=== PATIENT | female | born 1980 | race Hispanic/Latino ===

== ENCOUNTER 2019-12-20 22:19 | Inpatient (IN) | payer OTHER, SELFPAY ==
[~2019-12-20] VITALS: Ht 154.9 cm; Wt 129.0 kg
[2019-12-20 23:14] LABS: BASOPHILS % (AUTO) 0.4 % (0.0-5.0); EOSINOPHILS % (AUTO) 1.8 % (0.0-8.0); HEMATOCRIT 43.7 % (36-48); LYMPHOCYTES % (AUTO) 18.4 % (21.0-51.0); MEAN CORPUSCULAR HEMOGLOBIN 31.8 pg (27.0-33.0); MEAN CORPUSCULAR HGB CONC 33.4 g/dL (32.0-36.0); MEAN CORPUSCULAR VOLUME 95.2 fL (79-99); MONOCYTES % (AUTO) 4.7 % (3.0-13.0); NEUTROPHILS % (AUTO) 74.4 % (40.0-77.0); PLATELET COUNT (AUTO) 422 K/uL (130-400); RED BLOOD CELL COUNT(AUTO) 4.59 MIL/uL (4.00-5.50); WHITE BLOOD COUNT (AUTO) 9.7 K/uL (4.8-10.8)
[2019-12-20 23:26] LABS: POTASSIUM 3.9 mmol/L (3.5-5.1)
[2019-12-20 23:36] LABS: ALBUMIN 3.4 g/dL (3.5-5.0); BILIRUBIN,TOTAL 0.4 mg/dL (0.2-1.0); TOTAL PROTEIN, SERUM 7.5 g/dL (6.0-8.3)
[2019-12-20 23:46] LABS: INR 0.92 (0.85-1.15); PARTIAL THROMBOPLASTIN TIME 26.9 SEC (26.3-35.5)
[2019-12-21] MEDS ORDERED: IOHEXOL 350 MG/ML 100ML INFUS..BTL IV ONE (00:25)
[2019-12-21] MEDS ORDERED: IOHEXOL-350 50ML VIAL IV ONE (00:54)
[2019-12-21] MEDS ORDERED: CLONIDINE HCL 0.2 MG TABLET PO ONE (02:08)
[2019-12-21] MEDS ORDERED: LEVOFLOXACIN 500 MG/D5W 100 ML 100 ML ONE (02:20)
[2019-12-21 02:27] LABS: AMPHET/METH SCREEN,URINE NEGATIVE (NEGATIVE); BARBITURATE SCREEN, URINE NEGATIVE (NEGATIVE); BENZODIAZEPINES SCREEN,URINE NEGATIVE (NEGATIVE); CANNABINOID SCREEN,URINE NEGATIVE (NEGATIVE); COCAINE SCREEN,URINE POSITIVE (NEGATIVE); OPIATE SCREEN,URINE NEGATIVE (NEGATIVE); PHENCYCLIDINE SCREEN,URINE NEGATIVE (NEGATIVE)
[2019-12-21] MEDS ORDERED: ALBUTEROL INHALER 90MCG/INH IH PRN (03:15)
[2019-12-21] MEDS ORDERED: ONDANSETRON HCL 4 MG/2 ML VIAL IV PRN (03:15)
[2019-12-21] MEDS ORDERED: MORPHINE SULFATE 2 MG/ML 1ML SYG IV PRN (03:15)
[2019-12-21] MEDS ORDERED: NITROGLYCERIN 0.4 MG SL TAB SL PRN (03:15)
[2019-12-21] MEDS ORDERED: ACETAMINOPHEN 325 MG TAB PO PRN (03:15)
[2019-12-21] MEDS: ASPIRIN 325MG EC TAB 325 MG TABLET.DR PO SCH (03:30)
[2019-12-21 03:39] LABS: APPEARANCE,URINE Clear (CLEAR); BILIRUBIN,URINE Negative (NEGATIVE); COLOR,URINE Yellow (YELLOW); GLUCOSE, URINE (UA) Negative (NEGATIVE); KETONES,URINE 15 mg/dL (NEGATIVE); LEUKOCYTE ESTERASE ,URINE Negative (NEGATIVE); NITRATE,URINE Negative (NEGATIVE); OCCULT BLOOD,URINE Negative (NEGATIVE); PH,URINE 5.5 (5.0-8.0); PROTEIN,URINE Negative (NEGATIVE)
[2019-12-21] MEDS ORDERED: NITROGLYCERIN 1GM/1 INCH PACKET TD ONE (04:17)
[2019-12-21] MEDS ORDERED: AZITHROMYCIN 500MG+NS 250ML 250 ML IV ONE (04:17)
[2019-12-21 05:11] LABS: BASOPHILS % (AUTO) 0.5 % (0.0-5.0); EOSINOPHILS % (AUTO) 1.8 % (0.0-8.0); HEMATOCRIT 41.6 % (36-48); LYMPHOCYTES % (AUTO) 21.3 % (21.0-51.0); MEAN CORPUSCULAR HEMOGLOBIN 31.9 pg (27.0-33.0); MEAN CORPUSCULAR HGB CONC 33.4 g/dL (32.0-36.0); MEAN CORPUSCULAR VOLUME 95.4 fL (79-99); MONOCYTES % (AUTO) 4.1 % (3.0-13.0); NEUTROPHILS % (AUTO) 71.9 % (40.0-77.0); PLATELET COUNT (AUTO) 395 K/uL (130-400); RED BLOOD CELL COUNT(AUTO) 4.36 MIL/uL (4.00-5.50); RED CELL DISTRIBUTION WIDTH 12.9 % (11.0-15.5); WHITE BLOOD COUNT (AUTO) 8.1 K/uL (4.8-10.8)
[2019-12-21 05:20] LABS: CRP QUANTITATIVE 22.2 mg/L (0.00-9.0); POTASSIUM 3.7 mmol/L (3.5-5.1)
[2019-12-21] MEDS: CEFTRIAXONE SODIUM 1 GM IV SCH (05:30)
[2019-12-21 05:32] LABS: HEMOGLOBIN A1C 5.6 % (4.0-6.0)
[2019-12-21] MEDS: NITROGLYCERIN 1GM/1 INCH PACKET TD SCH ×4 (06:00→23:34)
[2019-12-21] MEDS ORDERED: FAMOTIDINE 20MG TAB 20 MG TAB ONE (08:39)
[2019-12-21] MEDS ORDERED: ENOXAPARIN SODIUM 40 MG/0.4 ML SYRINGE SQ ONE (08:39)
[2019-12-21] MEDS ORDERED: ASPIRIN 325 MG TABLET ONE (08:39)
[2019-12-21] MEDS ORDERED: CEFTRIAXONE SODIUM 1 GM ONE (08:40)
[2019-12-21] MEDS: FAMOTIDINE 20MG TAB 20 MG TAB PO SCH ×2 (09:00→21:46)
[2019-12-21] MEDS: ASPIRIN 81MG TAB.CHEW PO SCH (09:00)
[2019-12-21] MEDS: ENOXAPARIN SODIUM 40 MG/0.4 ML SYRINGE SQ SCH (09:00)
[2019-12-21] MEDS ORDERED: ALBUTEROL INHALER 90MCG/INH IH ONE (09:26)
[2019-12-21 21:08] VITALS: BP 170/129
[2019-12-21] MEDS: ATORVASTATIN CALCIUM 20 MG TABLET PO SCH (21:46)
[2019-12-21] MEDS: HYDRALAZINE HCL 20 MG/ML VIAL IV PRN (23:34)
[2019-12-21 23:53] VITALS: BP 189/116
[2019-12-21 23:54] VITALS: BP 154/106
[2019-12-22] MEDS: ASPIRIN 325MG EC TAB 325 MG TABLET.DR PO SCH (03:30)
[2019-12-22 03:42] VITALS: BP 153/93
[2019-12-22 03:51] LABS: BASOPHILS % (AUTO) 0.4 % (0.0-5.0); EOSINOPHILS % (AUTO) 2.3 % (0.0-8.0); HEMATOCRIT 39.5 % (36-48); LYMPHOCYTES % (AUTO) 22.2 % (21.0-51.0); MEAN CORPUSCULAR HEMOGLOBIN 31.2 pg (27.0-33.0); MEAN CORPUSCULAR HGB CONC 32.9 g/dL (32.0-36.0); MEAN CORPUSCULAR VOLUME 94.7 fL (79-99); MONOCYTES % (AUTO) 5.1 % (3.0-13.0); NEUTROPHILS % (AUTO) 69.5 % (40.0-77.0); PLATELET COUNT (AUTO) 369 K/uL (130-400); RED BLOOD CELL COUNT(AUTO) 4.17 MIL/uL (4.00-5.50); RED CELL DISTRIBUTION WIDTH 12.8 % (11.0-15.5); WHITE BLOOD COUNT (AUTO) 9.1 K/uL (4.8-10.8)
[2019-12-22 04:03] LABS: CREATININE 0.9 mg/dL (0.5-1.5); POTASSIUM 3.7 mmol/L (3.5-5.1)
[2019-12-22] MEDS: CEFTRIAXONE SODIUM 1 GM IV SCH (04:49)
[2019-12-22] MEDS: ACETAMINOPHEN 325 MG TAB PO PRN ×2 (04:50→21:01)
[2019-12-22] MEDS: AZITHROMYCIN 500MG+NS 250ML 250 ML IV SCH (04:50)
[2019-12-22] MEDS: NITROGLYCERIN 1GM/1 INCH PACKET TD SCH ×3 (06:00→17:47)
[2019-12-22 08:00] VITALS: BP 180/120
[2019-12-22] MEDS: ASPIRIN 81MG TAB.CHEW PO SCH (08:48)
[2019-12-22] MEDS: FAMOTIDINE 20MG TAB 20 MG TAB PO SCH ×2 (08:48→20:54)
[2019-12-22] MEDS: HYDRALAZINE HCL 20 MG/ML VIAL IV PRN (08:49)
[2019-12-22 12:00] VITALS: BP 170/100
--- NOTE | 2019-12-22 12:07 | NUR ---
DCP CM met with pt discussed dc plans. Pt is independent prior to admission, lives at home with mother. Denies any equipments/servcies. Feels safe to go back home, still drives, family able to assist with transportation and needs as necessary. Pt is a selfpay, [facility] assisting, given community resources packet. DC plan to home once stable. CM to cont to follow up. Addendum: 12/22/19 at 1215 by ALEYDA PEREIRA LVN CM Amended: Links added.
[2019-12-22] MEDS ORDERED: LISINOPRIL 20 MG TABLET PO SCH (15:20)
[2019-12-22 16:00] VITALS: BP 156/105
[2019-12-22] MEDS: ENOXAPARIN SODIUM 40 MG/0.4 ML SYRINGE SQ SCH (17:47)
[2019-12-22 19:30] VITALS: BP 136/77
[2019-12-22] MEDS: ATORVASTATIN CALCIUM 20 MG TABLET PO SCH (20:54)
[2019-12-22 23:29] VITALS: BP 155/78
[2019-12-23] MEDS: NITROGLYCERIN 1GM/1 INCH PACKET TD SCH ×3 (00:16→13:45)
[2019-12-23 03:45] VITALS: BP 150/83
[2019-12-23] MEDS: CEFTRIAXONE SODIUM 1 GM IV SCH (05:15)
[2019-12-23] MEDS: AZITHROMYCIN 500MG+NS 250ML 250 ML IV SCH (05:15)
[2019-12-23 06:05] LABS: BASOPHILS % (AUTO) 0.5 % (0.0-5.0); EOSINOPHILS % (AUTO) 2.3 % (0.0-8.0); HEMATOCRIT 42.4 % (36-48); LYMPHOCYTES % (AUTO) 23.7 % (21.0-51.0); MEAN CORPUSCULAR HEMOGLOBIN 30.8 pg (27.0-33.0); MEAN CORPUSCULAR HGB CONC 32.3 g/dL (32.0-36.0); MEAN CORPUSCULAR VOLUME 95.3 fL (79-99); MONOCYTES % (AUTO) 3.7 % (3.0-13.0); NEUTROPHILS % (AUTO) 69.3 % (40.0-77.0); PLATELET COUNT (AUTO) 390 K/uL (130-400); RED BLOOD CELL COUNT(AUTO) 4.45 MIL/uL (4.00-5.50); RED CELL DISTRIBUTION WIDTH 12.8 % (11.0-15.5); WHITE BLOOD COUNT (AUTO) 8.6 K/uL (4.8-10.8)
[2019-12-23 06:27] LABS: ALBUMIN 3.2 g/dL (3.5-5.0); BILIRUBIN,TOTAL 0.3 mg/dL (0.2-1.0); CREATININE 0.9 mg/dL (0.5-1.5); POTASSIUM 3.7 mmol/L (3.5-5.1); TOTAL PROTEIN, SERUM 7.4 g/dL (6.0-8.3)
[2019-12-23 08:00] VITALS: BP 191/140
[2019-12-23] MEDS ORDERED: LISINOPRIL 20 MG TABLET PO SCH (09:00)
[2019-12-23] MEDS: FAMOTIDINE 20MG TAB 20 MG TAB PO SCH (09:31)
[2019-12-23] MEDS: ASPIRIN 81MG TAB.CHEW PO SCH (09:32)
[2019-12-23] MEDS: ENOXAPARIN SODIUM 40 MG/0.4 ML SYRINGE SQ SCH (09:40)
[2019-12-23 12:00] VITALS: BP 160/102
[2019-12-23] MEDS ORDERED: SULF1TAB41 PO (14:41)
[2019-12-23] MEDS ORDERED: ALBUHFA IH (14:45)
[2019-12-23] MEDS ORDERED: FAMO20TA8 PO (14:45)
[2019-12-23] MEDS ORDERED: ATOR20TA65 PO (14:45)
[2019-12-23] MEDS ORDERED: LISI-613 PO (14:45)
[2019-12-23] MEDS ORDERED: ASPI-1005 PO (14:45)
--- NOTE | 2019-12-23 17:00 | NUR ---
discharged using teach back. saline lock lt. hand removed, site healthy. inst given and rx sent electronic to pharm. of choice. verbalized understanding of all inst. given. wheeled downstairs to er area where family is waiting.
== END 2019-12-23 15:50 | disposition home or self-care (01) | DRG 194 ==
LOC: EDH 22:19 → EDHIP 22:20 → 4BH 12-21 20:15
PROVIDERS: ADMIT Internal Medicine; ATTEND Internal Medicine
DX: J18.9 Pneumonia, unspecified organism (principal); J44.1 Chronic obstructive pulmonary disease with (acute) exacerbation; Z68.43 Body mass index [BMI] 50.0-59.9, adult; R04.2 Hemoptysis; J44.0 Chronic obstructive pulmonary disease with (acute) lower respiratory infection; I10 Essential (primary) hypertension; E66.01 Morbid (severe) obesity due to excess calories; F17.200 Nicotine dependence, unspecified, uncomplicated; Z20.828 Contact with and (suspected) exposure to other viral communicable diseases; F14.90 Cocaine use, unspecified, uncomplicated; Z79.899 Other long term (current) drug therapy
CPT/HCPCS: 36415; 71045; 71275; 80048; 80053; 80305; 81003; 83036; 84484; 84702; 85025; 85610; 85730; 86140; 87040; 87077; 87186; 87486; 87581; 87633; 87635; 87798; 87804; 87880; 93005; G0378; J0360; J0456; J0696; J1650; J1956; Q9967

== ENCOUNTER 2020-01-26 21:12 | Inpatient (IN) | payer OTHER, SELFPAY ==
[~2020-01-26] VITALS: Ht 154.9 cm; Wt 130.2 kg
[~2020-01-26 21:12] MED LIST: ALBUHFA IH; ASPI-1005 PO; ATOR20TA65 PO; FAMO20TA8 PO; LISI-613 PO; SULF1TAB41 PO
[2020-01-26 22:21] LABS: BASOPHILS % (AUTO) 0.3 % (0.0-5.0); EOSINOPHILS % (AUTO) 1.1 % (0.0-8.0); HEMATOCRIT 34.8 % (36-48); LYMPHOCYTES % (AUTO) 9.1 % (21.0-51.0); MEAN CORPUSCULAR HEMOGLOBIN 31.3 pg (27.0-33.0); MEAN CORPUSCULAR HGB CONC 32.8 g/dL (32.0-36.0); MEAN CORPUSCULAR VOLUME 95.6 fL (79-99); MONOCYTES % (AUTO) 3.4 % (3.0-13.0); NEUTROPHILS % (AUTO) 85.6 % (40.0-77.0); NUCLEATED RED BLOOD CELLS 0.3 % (0.0-0.19); PLATELET COUNT (AUTO) 444 K/uL (130-400); RED BLOOD CELL COUNT(AUTO) 3.64 MIL/uL (4.00-5.50); RED CELL DISTRIBUTION WIDTH 13.5 % (11.0-15.5); WHITE BLOOD COUNT (AUTO) 15.2 K/uL (4.8-10.8)
[2020-01-26 22:33] LABS: INR 0.92 (0.85-1.15); PARTIAL THROMBOPLASTIN TIME 26.9 SEC (26.3-35.5)
[2020-01-26 22:37] LABS: CARBON DIOXIDE 27 mmol/L (21-32); CHLORIDE 100 mmol/L (101-111); CREATININE 0.7 mg/dL (0.5-1.5); GLOMERULAR FILTR. RATE CALC 100 mL/min (>60); GLUCOSE,RANDOM 124 mg/dL (70-105); POTASSIUM 3.8 mmol/L (3.5-5.1); SODIUM SERUM 135 mmol/L (136-145); UREA NITROGEN, BLOOD 8 mg/dL (7-18)
[2020-01-26 22:51] LABS: ALANINE AMINOTRANSFERASE 20 U/L (12-78); ASPARTATE AMINOTRANSFERASE 30 U/L (10-37); BILIRUBIN,TOTAL 0.6 mg/dL (0.2-1.0); MYOGLOBIN 59 ng/mL (10-92); TOTAL PROTEIN, SERUM 7.2 g/dL (6.0-8.3); TROPONIN I < 0.04 ng/mL (0.00-0.06)
[2020-01-26 23:08] LABS: CREATINE KINASE, TOTAL 429 U/L (21-232)
[2020-01-26] MEDS ORDERED: CEFTRIAXONE SODIUM 1 GM ONE (23:41)
[2020-01-26] MEDS ORDERED: SODIUM CHLORIDE 0.9% 50 ML IV ONE (23:43)
[2020-01-27] MEDS ORDERED: AZITHROMYCIN 500MG+NS 250ML 250 ML IV ONE ×2 (00:31→00:35)
[2020-01-27] MEDS ORDERED: ACETAMINOPHEN 325 MG TAB ONE (02:43)
[2020-01-27] MEDS ORDERED: ERGOCALCIFEROL (VITAMIN D2) 50,000 UNIT CAPSULE PO ONE (02:45)
[2020-01-27] MEDS ORDERED: ONDANSETRON HCL 4 MG/2 ML VIAL IV PRN (02:45)
[2020-01-27] MEDS: CEFTRIAXONE SODIUM 1 GM IVP SCH ×2 (02:45→14:19)
[2020-01-27] MEDS ORDERED: DOXYCYCLINE 100MG+NS 250ML IV SCH (02:45)
[2020-01-27] MEDS ORDERED: ACETAMINOPHEN 325 MG TAB PO PRN ×2 (02:45)
[2020-01-27] MEDS ORDERED: NITROGLYCERIN 1GM/1 INCH PACKET TD SCH ×2 (02:45→07:30)
[2020-01-27] MEDS ORDERED: DOXYCYCLINE HYCLATE 100 MG TABLET PO ONE (03:53)
[2020-01-27] MEDS ORDERED: METHYLPREDNISOLONE SOD SUCC 40MG/ML 1ML ONE (03:53)
[2020-01-27] MEDS ORDERED: ERGOCALCIFEROL (VITAMIN D2) 50,000 UNIT CAPSULE ONE (03:54)
[2020-01-27] MEDS ORDERED: NITROGLYCERIN 1GM/1 INCH PACKET TD ONE (03:54)
--- NOTE | 2020-01-27 05:30 | NUR ---
ER REPORT FROM BERRY BOCANEGRA
--- NOTE | 2020-01-27 06:00 | NUR ---
PT ARRIVED FROM ER. PT ON NRB.15L 100%. O2 LEVEL 92%. ABLE TO AMBULATE TO RR. STATES HM IS LISINOPIRL 20MG DAILY. PT STATES SON IS COVID POSITIVE BUT HAS RECOVERED FROM IT. PENDING COVID RESULTS.
[2020-01-27 06:20] VITALS: BP 143/106
[2020-01-27 07:42] LABS: BASOPHILS % (AUTO) 0.2 % (0.0-5.0); EOSINOPHILS % (AUTO) 0.1 % (0.0-8.0); HEMATOCRIT 29.3 % (36-48); MEAN CORPUSCULAR HEMOGLOBIN 31.5 pg (27.0-33.0); MEAN CORPUSCULAR HGB CONC 32.8 g/dL (32.0-36.0); MEAN CORPUSCULAR VOLUME 96.1 fL (79-99); MONOCYTES % (AUTO) 1.2 % (3.0-13.0); NEUTROPHILS % (AUTO) 94.1 % (40.0-77.0); NUCLEATED RED BLOOD CELLS 0.1 % (0.0-0.19); PLATELET COUNT (AUTO) 374 K/uL (130-400); RED BLOOD CELL COUNT(AUTO) 3.05 MIL/uL (4.00-5.50); RED CELL DISTRIBUTION WIDTH 13.4 % (11.0-15.5); WHITE BLOOD COUNT (AUTO) 15.6 K/uL (4.8-10.8)
[2020-01-27 08:00] VITALS: BP 142/78
[2020-01-27 08:13] LABS: ALANINE AMINOTRANSFERASE 19 U/L (12-78); ALBUMIN 2.6 g/dL (3.5-5.0); ASPARTATE AMINOTRANSFERASE 18 U/L (10-37); BILIRUBIN,TOTAL 0.4 mg/dL (0.2-1.0); CARBON DIOXIDE 28 mmol/L (21-32); CHLORIDE 102 mmol/L (101-111); CREATINE KINASE, TOTAL 385 U/L (21-232); GLOMERULAR FILTR. RATE CALC 66 mL/min (>60); GLUCOSE,RANDOM 234 mg/dL (70-105); LACTATE DEHYDROGENASE 177 U/L (81-234); MYOGLOBIN 60 ng/mL (10-92); POTASSIUM 3.5 mmol/L (3.5-5.1); SODIUM SERUM 136 mmol/L (136-145); TOTAL PROTEIN, SERUM 6.9 g/dL (6.0-8.3); TROPONIN I < 0.04 ng/mL (0.00-0.06); UREA NITROGEN, BLOOD 8 mg/dL (7-18)
[2020-01-27] MEDS ORDERED: METHYLPREDNISOLONE SOD SUCC 40MG/ML 1ML IVP SCH (09:00)
[2020-01-27] MEDS ORDERED: DOXYCYCLINE 100MG+NS 250ML 250 ML IV SCH (09:00)
[2020-01-27] MEDS: ZINC SULFATE 220 CAPSULE PO SCH (09:57)
[2020-01-27] MEDS: ACETYLCYSTEINE 600 MG CAPSULE PO SCH ×2 (09:57→21:05)
[2020-01-27] MEDS: ASPIRIN 81 MG EC TAB PO SCH (09:57)
[2020-01-27] MEDS: ASCORBIC ACID 500 MG TAB PO SCH (09:57)
[2020-01-27] MEDS: FAMOTIDINE/PF 20 MG/2 ML VIAL IV SCH ×2 (09:58→21:05)
[2020-01-27 11:30] VITALS: BP 111/61
[2020-01-27] MEDS: NITROGLYCERIN 1GM/1 INCH PACKET TD SCH ×2 (12:32→19:24)
[2020-01-27] MEDS: METHYLPREDNISOLONE SOD SUCC 40MG/ML 1ML IVP SCH ×2 (12:32→19:24)
[2020-01-27] MEDS ORDERED: PHARMACY COMMUNICATION***REMDESIVIR ORDER MISC SCH (14:00)
[2020-01-27 15:30] VITALS: BP 93/57
[2020-01-27 16:57] LABS: HEMATOCRIT 27.7 % (36-48); MEAN CORPUSCULAR HEMOGLOBIN 30.6 pg (27.0-33.0); MEAN CORPUSCULAR HGB CONC 31.8 g/dL (32.0-36.0); MEAN CORPUSCULAR VOLUME 96.2 fL (79-99); PLATELET COUNT (AUTO) 384 K/uL (130-400); RED BLOOD CELL COUNT(AUTO) 2.88 MIL/uL (4.00-5.50); RED CELL DISTRIBUTION WIDTH 13.1 % (11.0-15.5); WHITE BLOOD COUNT (AUTO) 14.6 K/uL (4.8-10.8)
[2020-01-27] MEDS ORDERED: IOHEXOL-350 75 ML VIAL IV ONE (17:00)
[2020-01-27 17:46] LABS: LYMPHOCYTES % (MANUAL) 6 % (22-44); MAN.DIFF COMMENT-IMPRESSION MANUAL DIFFERENTIAL; MONOCYTES % (MANUAL) 1 % (2-9); SEGMENTED NEUTROPHILS % 93 % (40-70)
[2020-01-27 17:47] LABS: PLATELET MORPHOLOGY COMMENT ADEQUATE
--- NOTE | 2020-01-27 18:20 | NUR ---
INITIAL SW spoke to patient's mother, Chandrika Johnson. Patient lives with common law spouse. No home services or DME. Patient is able to complete ADL's independently and drives. She has no PCP. Pharmacy is [facility] located on [address] [place] [address] in [place]. DCP is home. Patient has no insurance or benefits. She is being assisted by [employer]. Patient's mother was educated on $4 [facility] and $5 [facility] discount prescription program. Addendum: 01/27/20 at 1823 by ALBERTO GARDNER Amended: Links added.
[2020-01-27 19:00] VITALS: BP 115/64
[2020-01-27] MEDS: DOXYCYCLINE HYCLATE 100 MG TABLET PO SCH (21:05)
[2020-01-27 23:00] VITALS: BP 137/85
--- NOTE | 2020-01-28 00:10 | NUR ---
PATIENT CALLED OUT AFTER PATIENT WENT TO CT OF CHEST. NURSE WENT IN ROOM AT PATIENT'S NONREBREATHER CAME OFF WALL. NON REBREATHER HOOKED BACK UP. PATIENT WAS SATTING AT 80%. PLACED PATIENT IN A PRONE POSITION AND CALLED RESPIRATORY. TRIED USING 6L NASAL CANNULA AND 15L NONREBREATHER AND PATIENT STAYED AT 84%. RESPIRATORY PLACED PATIENT ON HIGH FLOW NASAL CANNULA AT 55L AND 80% OXYGEN AND 15L NONREBREATHER. PATIENT IS CURRENTLY SATTING AT 91%. PATIENT DENIES ANY RESPIRATORY DISTRESS.
[2020-01-28 03:00] VITALS: BP 130/73
[2020-01-28] MEDS: NITROGLYCERIN 1GM/1 INCH PACKET TD SCH ×3 (04:00→21:04)
[2020-01-28 04:33] LABS: BASOPHILS % (AUTO) 0.1 % (0.0-5.0); HEMATOCRIT 28.2 % (36-48); LYMPHOCYTES % (AUTO) 3.5 % (21.0-51.0); MEAN CORPUSCULAR HEMOGLOBIN 31.3 pg (27.0-33.0); MEAN CORPUSCULAR HGB CONC 31.9 g/dL (32.0-36.0); MEAN CORPUSCULAR VOLUME 97.9 fL (79-99); MONOCYTES % (AUTO) 3.1 % (3.0-13.0); NEUTROPHILS % (AUTO) 92.6 % (40.0-77.0); PLATELET COUNT (AUTO) 440 K/uL (130-400); RED BLOOD CELL COUNT(AUTO) 2.88 MIL/uL (4.00-5.50); RED CELL DISTRIBUTION WIDTH 13.4 % (11.0-15.5); WHITE BLOOD COUNT (AUTO) 18.4 K/uL (4.8-10.8)
[2020-01-28 04:46] LABS: ALBUMIN 2.6 g/dL (3.5-5.0); BILIRUBIN,TOTAL 0.4 mg/dL (0.2-1.0); CREATININE 0.8 mg/dL (0.5-1.5); TOTAL PROTEIN, SERUM 7.1 g/dL (6.0-8.3)
[2020-01-28 04:56] LABS: CRP QUANTITATIVE 138.9 mg/L (0.00-9.0)
[2020-01-28] MEDS ORDERED: POTASSIUM CHLORIDE 10% ELIXIR 20 MEQ/15 ML UDCUP PO PRN (05:45)
[2020-01-28] MEDS ORDERED: POTASSIUM CHLORIDE 20MEQ/100ML 100 ML IV PRN (05:45)
[2020-01-28] MEDS: METHYLPREDNISOLONE SOD SUCC 40MG/ML 1ML IVP SCH ×2 (05:48→11:05)
[2020-01-28 08:00] VITALS: BP 138/86
[2020-01-28] MEDS: FAMOTIDINE/PF 20 MG/2 ML VIAL IV SCH ×2 (08:03→21:04)
[2020-01-28] MEDS: CEFTRIAXONE SODIUM 1 GM IVP SCH ×2 (08:04→21:04)
[2020-01-28] MEDS: DOXYCYCLINE HYCLATE 100 MG TABLET PO SCH ×2 (08:06→21:00)
[2020-01-28] MEDS: ASCORBIC ACID 500 MG TAB PO SCH (08:06)
[2020-01-28] MEDS: ASPIRIN 81 MG EC TAB PO SCH (08:06)
[2020-01-28] MEDS: POTASSIUM CHLORIDE 20 MEQ ERTAB PO PRN ×2 (08:06→17:33)
[2020-01-28] MEDS: ZINC SULFATE 220 CAPSULE PO SCH (08:06)
[2020-01-28] MEDS: ACETYLCYSTEINE 600 MG CAPSULE PO SCH ×2 (08:06→21:00)
[2020-01-28] MEDS ORDERED: ENOXAPARIN SODIUM 0.5 MG/KG EACH SQ SCH (09:00)
[2020-01-28] MEDS ORDERED: ENOXAPARIN SODIUM 30 MG/0.3 ML SQ SCH (09:00)
--- NOTE | 2020-01-28 10:30 | NUR ---
RESTING IN BED WITH EYES CLOSED, RESP.'S EVEN AND UNLABORED. HI-FLOW AND NRB IN PLACE. O2 SAT. -96% PER CONTINUOUS PULSE OXIMETER.
[2020-01-28] MEDS: ENOXAPARIN SODIUM 80 MG/0.8 ML SQ SCH (10:59)
--- NOTE | 2020-01-28 11:10 | NUR ---
PT. STATES SHE WOULD LIKE TO LEAVE THE HOSPITAL. SHE WISHES TO NO LONGER BE HERE. INFORMED/REMINDED PT. OF CURRENT OXYGENATION NEEDS AND CONTINUES WITH SOB. INFORMED OF CONSEQUENCES OF OXYGEN REMOVAL AND RISKS OF LACK OF TREATMENT, RISK OF BLOOD CLOTS, HEART ATTACK AND EVEN BUT ALSO ADVISED SHE IS FREE TO LEAVE IF SHE WOULD LIKE TO "CHECK HERSELF OUT," SHE PUT IT. INFORMED PT. I WOULD GIVE HER TIME TO THINK ABOUT IT AND THIS NURSE WOULD RETURN FOR HER DECISION.
--- NOTE | 2020-01-28 11:25 | NUR ---
PT. STATES SHE WOULD LIKE TO REMAIN HOSPITALIZED TO CONTINUE TREATMENT.
[2020-01-28 11:30] VITALS: BP 132/88
--- NOTE | 2020-01-28 12:55 | NUR ---
RECEIVED ALL FROM PT.'S DAUGHTER, UPDATED ON STATUS AND QUESTIONS ANSWERED.
--- NOTE | 2020-01-28 14:25 | NUR ---
RESTING IN BED IN LEFT SIDE-LYING POSITION WITH EYES CLOSED, RESP.'S EVEN AND UNLABORED. O2 SAT PER CONT. PULSE OX. - 93%. CALL LIGHT WITHIN REACH.
[2020-01-28 15:30] VITALS: BP 124/63
[2020-01-28] MEDS: METHYLPREDNISOLONE SOD SUCC 125MG/2ML VIAL IVP SCH (17:33)
[2020-01-28] MEDS: GUAIFENESIN-DM 200/20 MG 10 ML PO PRN (17:34)
[2020-01-28 19:20] VITALS: BP 152/68
--- NOTE | 2020-01-28 20:18 | NUR ---
SPOKE WITH DR. LIZARRAGA AND NOTIFIED PT. IN LEFT SIDE-LYING POSITION WITH HI-FLOW O2, 60L/MIN 100% FIO2 AND NRB IN PLACE; O2 SATURATION REMAINS 80%-83%, AND PT. TACHYPNEIC; VERBALIZED UNDERSTANDING AND ORDER FOR BIPAP RECEIVED. RT LUIS IN PT.'S ROOM MADE AWARE.
--- NOTE | 2020-01-28 20:20 | NUR ---
SPOKE WITH PT. RE:POTENTIAL NEED FOR INTUBATION OR CPR/RESUSCITATION. PT. STATES SHE IS AGREEABLE TO INTUBATION AND RESUSCITATION.
[2020-01-28 20:41] LABS: ABG BASE EXCESS -1.3 mmol/L (-2.0-3.0); ABG HCO3 26.5 mmol/L (21.0-28.0); ABG OXYGEN SATURATION 82.5 % (95.0-99.0); ABG PCO2 58 mmHg (32-45)
--- NOTE | 2020-01-28 20:50 | NUR ---
NOTIFIED DR. LIZARRAGA OF ABG RESULTS, ORDER RECEIVED.
[2020-01-28] MEDS ORDERED: MORPHINE SULFATE 2 MG/ML 1ML SYG ONE (21:00)
[2020-01-28 22:26] LABS: ABG BASE EXCESS 3.6 mmol/L (-2.0-3.0); ABG HCO3 29.5 mmol/L (21.0-28.0); ABG OXYGEN SATURATION 88.7 % (95.0-99.0); ABG PCO2 49 mmHg (32-45)
--- NOTE | 2020-01-28 22:50 | NUR ---
DR. LIZARRAGA, AT NURSE'S STATION, UPDATED ON PT. STATUS. NO NEW ORDERS RECEIVED.
--- NOTE | 2020-01-28 23:05 | NUR ---
RESTING IN BED IN LEFT SIDE-LYING POSITION. BIPAP IN PLACE. 97% O2 SATURATION PER CONTINUOUS PULSE OXIMETER AT BEDSIDE. CALL LIGHT WITHIN REACH. ROOM BLINDS OPEN.
[2020-01-28 23:38] VITALS: BP 140/90
[2020-01-29] MEDS: GUAIFENESIN-DM 200/20 MG 10 ML PO PRN (00:18)
[2020-01-29] MEDS: METHYLPREDNISOLONE SOD SUCC 125MG/2ML VIAL IVP SCH ×3 (01:22→12:22)
[2020-01-29] MEDS: MORPHINE SULFATE 2 MG/ML 1ML SYG IVP PRN ×4 (01:23→12:23)
[2020-01-29 03:15] VITALS: BP 132/86
[2020-01-29] MEDS: NITROGLYCERIN 1GM/1 INCH PACKET TD SCH ×2 (04:52→12:23)
[2020-01-29 04:57] LABS: ALBUMIN 2.6 g/dL (3.5-5.0); BILIRUBIN,TOTAL 0.6 mg/dL (0.2-1.0); CREATININE 0.8 mg/dL (0.5-1.5); CRP QUANTITATIVE 174.2 mg/L (0.00-9.0); POTASSIUM 3.8 mmol/L (3.5-5.1)
[2020-01-29] MEDS: PHARMACY COMMUNICATION MISC SCH ×2 (05:15→08:35)
[2020-01-29 05:43] LABS: BASOPHILS % (AUTO) 0.1 % (0.0-5.0); HEMATOCRIT 26.8 % (36-48); LYMPHOCYTES % (AUTO) 2.4 % (21.0-51.0); MEAN CORPUSCULAR HEMOGLOBIN 30.9 pg (27.0-33.0); MEAN CORPUSCULAR HGB CONC 31.3 g/dL (32.0-36.0); MEAN CORPUSCULAR VOLUME 98.5 fL (79-99); MONOCYTES % (AUTO) 3.9 % (3.0-13.0); NEUTROPHILS % (AUTO) 92.7 % (40.0-77.0); NUCLEATED RED BLOOD CELLS 0.2 % (0.0-0.19); PLATELET COUNT (AUTO) 462 K/uL (130-400); RED BLOOD CELL COUNT(AUTO) 2.72 MIL/uL (4.00-5.50); RED CELL DISTRIBUTION WIDTH 13.5 % (11.0-15.5); WHITE BLOOD COUNT (AUTO) 20.3 K/uL (4.8-10.8)
[2020-01-29 08:00] VITALS: BP 143/76
[2020-01-29] MEDS: ACETYLCYSTEINE 600 MG CAPSULE PO SCH (09:00)
[2020-01-29] MEDS: ZINC SULFATE 220 CAPSULE PO SCH (09:00)
[2020-01-29] MEDS: ASCORBIC ACID 500 MG TAB PO SCH (09:00)
[2020-01-29] MEDS: ASPIRIN 81 MG EC TAB PO SCH (09:00)
[2020-01-29] MEDS: DOXYCYCLINE HYCLATE 100 MG TABLET PO SCH (09:00)
[2020-01-29] MEDS: FAMOTIDINE/PF 20 MG/2 ML VIAL IV SCH (10:44)
[2020-01-29] MEDS: ENOXAPARIN SODIUM 80 MG/0.8 ML SQ SCH (10:44)
[2020-01-29] MEDS: CEFTRIAXONE SODIUM 1 GM IVP SCH (10:44)
--- NOTE | 2020-01-29 11:13 | NUR ---
SHIFT CHANGE REPORT GIVEN AT 0700. PATIENT RADHA ON BIPAP LAYING ON LEFT SIDE SATTING 80-88%. SHE WILL BE AT 91% AND DROP WITH ANY MOVEMENT. AT [address] REYNA NOTIFIED OF OXYGEN SATURATION AT 80% PATIENT CHANGED POSITIONS. RESPIRATORY CHANGED BIPAP SETTINGS CHANGED FROM / TO . PATIENT HAS BEEN CALLING UPSET THAT SHE CANNOT EAT AND THAT SHE IS MAD SHE IS WEARING A DIAPER AND DOES NOT WANT BIPAP ON. THIS NURSE HAS EXPLAINED TO HER THAT SHE NEEDS THE BIPAP ON HER OXYGEN SATURATION IS LOW AND THAT WITH ANY MOVEMENT SHE WILL DROP. ENCOURAGED PATIENT TO GO PRONE TO HELP BRING UP HER OXYGEN. THIS NURSE DID NOT GIVE HER TH EPO MEDICATIONS SHE IS UNABLE TO TAKE BIPAP OFF AT THIS TIME MORPHINE 2MG GIVEN AT 1041 TO HELP DECREASE ANXIETY AND HELP WITH HET RESPIRATIONS WHICH HAVE BEEN 36.
[2020-01-29] MEDS ORDERED: PROPOFOL 1000 MG/100 ML 100 ML IV ONE (11:43)
--- NOTE | 2020-01-29 12:18 | NUR ---
DIRECTOR OF DEMENTIA OPERATIONS FREDDIE TAKING CARE OVER PATIENT SHE IS BEING INTUBATED. REPORT GIVEN.
--- NOTE | 2020-01-29 12:18 | NUR ---
TALKED TO MOTHER OF PATIENT AND TRANSFERRED CALL TO TALK. PATIENT DID NOT WANT INTUBATION. DOCTOR SPOKE TO PATIENT ON BENEFITS OF INTUBATING AND HOW IT IS THE BEST FOR HER AT THIS TIME HER OXYGEN IS NOT DOING WELL ON THE BIPAP. PATIENT HAS RESPIRATIONS OF 60 AT THIS TIME. PATIENT FINALLY AGREED TO BE INTUBATED. MANAGER LICENSING AND DR. REYNA IN ROOM. INTUBATION MEDICATIONS GIVEN.
[2020-01-29] MEDS ORDERED: SODIUM CHLORIDE 0.9% 1000ML 1,000 ML IV ONE (12:21)
[2020-01-29] MEDS ORDERED: NOREPINEPHRINE 4MG/NS 250ML 250 ML IV ONE (12:21)
--- NOTE | 2020-01-29 13:05 | NUR ---
PT PULSELESS AND NO BP. MORENA ARMENTA INITIATED.. PLEASE REFER TO MORENA ARMENTA RECORD. PT HAVING A CENTRAL LINE PLACED TO RT FEMORAL VEIN PER TAMY SOSA. ATTEMPTING LEFT FEMORAL A-LINE TO RFA WHEN MORENA ARMENTA CALLED
[2020-01-29 13:48] LABS: ABG HCO3 20.8 mmol/L (21.0-28.0); ABG OXYGEN SATURATION 50.9 % (95.0-99.0); ABG PCO2 123 mmHg (32-45)
[2020-01-29] MEDS ORDERED: NOREPINEPHRINE 4MG/NS 250ML 250 ML IV SCH (14:00)
[2020-01-29] MEDS ORDERED: VASOPRESSIN 20 UNITS/NS 100ML IV SCH ×2 (14:00)
[2020-01-29] MEDS ORDERED: EPINEPHRINE 5 MG in SODIUM CHLORIDE 0.9% 245 ML IV PRN (14:00)
[2020-01-29] MEDS ORDERED: NOREPINEPHRINE 4MG/NS 250ML 250 ML IV PRN (14:00)
[2020-01-29] MEDS ORDERED: SODIUM BICARB 8.4% 50ML SYRING 0 MEQ in DEXTROSE 5%-WATER 1,000 ML IV SCH (14:00)
[2020-01-29] MEDS ORDERED: PHENYLEPHRINE HCL 50 MG/NS 250ML IV PRN ×2 (14:00)
[2020-01-29] MEDS ORDERED: SODIUM BICARB 8.4% 50ML SYRING 150 MEQ in DEXTROSE 5%-WATER 1,000 ML IVP SCH (14:00)
[2020-01-29] MEDS ORDERED: VASOPRESSIN 20 UNITS in SODIUM CHLORIDE 0.9% 99 ML IV PRN (14:00)
[2020-01-29] MEDS ORDERED: EPINEPHRINE 10 MG in SODIUM CHLORIDE 0.9% 250 ML IV SCH (14:00)
[2020-01-29] MEDS ORDERED: EPINEPHRINE 0.1 MG/ML 10 ML SYG IVP ONE (14:05)
[2020-01-29] MEDS ORDERED: SODIUM BICARB 8.4% 50ML SYRINGE IVP ONE (14:05)
[2020-01-29 14:51] LABS: ABG BASE EXCESS -20.7 mmol/L (-2.0-3.0); ABG HCO3 13.6 mmol/L (21.0-28.0); ABG OXYGEN SATURATION 46.4 % (95.0-99.0); ABG PCO2 97 mmHg (32-45)
--- NOTE | 2020-01-29 15:22 | NUR ---
PT - ALL ATTEMPTS MADE TO RESUSCITATE .. WAS ON LEVOPHED,EPINEPHRINE, AND VASOPRESSIN AT MAX RTES. WAS PACED TRANSCUTANEOUSLY ALSO. PT DID NOT RESPONE TO RESUSCITATIVE MEASURES AND IN ROOM 206. MOTHER AND BROTHER WERE ABLE TO SEE PATIENT AT BEDSIDE. PLEASE REFER TO ALL CODE BLUE RECORDS . THANK YOU.
== END 2020-01-29 17:26 | disposition expired | DRG 208 ==
LOC: EDH 21:12 → EDHIP 21:13 → 2AH 01-27 05:58 → 2BH 01-29 15:42
PROVIDERS: ADMIT Family Medicine; ATTEND Family Medicine
PROC: 5A09357 Assistance with Respiratory Ventilation, Less than 24 Consecutive Hours, Continuous Positive Airway Pressure (ICD-10-PCS; principal; 2020-01-29)
PROC: 5A1935Z Respiratory Ventilation, Less than 24 Consecutive Hours (ICD-10-PCS; 2020-01-29)
PROC: 0BH17EZ Insertion of Endotracheal Airway into Trachea, Via Natural or Artificial Opening (ICD-10-PCS; 2020-01-29)
PROC: 5A12012 Performance of Cardiac Output, Single, Manual (ICD-10-PCS; 2020-01-29)
DX: J96.01 Acute respiratory failure with hypoxia (principal); J18.9 Pneumonia, unspecified organism; Z68.43 Body mass index [BMI] 50.0-59.9, adult; M62.82 Rhabdomyolysis; E87.4 Mixed disorder of acid-base balance; F17.210 Nicotine dependence, cigarettes, uncomplicated; E66.01 Morbid (severe) obesity due to excess calories; I10 Essential (primary) hypertension; E87.6 Hypokalemia; Z20.828 Contact with and (suspected) exposure to other viral communicable diseases; Z90.49 Acquired absence of other specified parts of digestive tract; Z82.49 Family history of ischemic heart disease and other diseases of the circulatory system
CPT/HCPCS: 31500; 36415; 36600; 71045; 71275; 80053; 82435; 82550; 82728; 82803; 82947; 82948; 83605; 83615; 83874; 84132; 84145; 84295; 84484; 85018; 85025; 85378; 85610; 85730; 86140; 86701; 86850; 86900; 86901; 87040; 87390; 87426; 87486; 87581; 87633; 87798; 92950; 93005; 94002; 94660; 94760; G0378; J0171; J0456; J0696; J1650; J2405; J2704; J2920; J2930; J3480; J3490; J7030; J7050; J7070; Q9967; U0003